=== PATIENT | female | born 1995 | race Caucasian/White ===

== ENCOUNTER → 2016-11-26 | Outpatient (CLI) | payer BC ==
[2016-11-30 01:40] LABS: CHLAMYDIA TRACH RNA*** NOT DETECTED (NOT DETECTED); GC (NEIS GONORRHOEAE)RNA** NOT DETECTED (NOT DETECTED)
== END | disposition home or self-care (01) ==
LOC: C.LABSPEC 14:19
PROVIDERS: ATTEND Obstetrics & Gynecology
DX: Z11.3 Encounter for screening for infections with a predominantly sexual mode of transmission (principal)

== ENCOUNTER → 2016-12-07 | Outpatient (CLI) | payer BC ==
[2016-12-07 10:11] LABS: BASO % 0.6 %; BASO ABS # 0.04 K/uL (0-0.2); COMPLETE YES; EOS % 1.1 %; IG% 0.2 %; LYMPH % 25.3 %; LYMPH ABS # 1.61 K/uL (1.2-3.4); MEAN CELL VOLUME 89.1 fL (80-100); MEAN CORPUSCULAR HEMOGLOBIN 31.2 pg (25-34); MEAN PLATELET VOLUME 11.2 fL (7.4-10.4); MONO % 5.7 %; NEUT % 67.1 %; PLATELET COUNT 211 K/uL (130-400); RED BLOOD COUNT 4.04 M/uL (4.2-5.4); WHITE BLOOD COUNT 6.36 K/uL (4.8-10.8)
[2016-12-07 10:56] LABS: BLOOD UREA NITROGEN 9 mg/dl (7-18); CREATININE 0.94 mg/dl (0.60-1.20); GLUCOSE 82 mg/dl (70-99)
[2016-12-07 10:57] LABS: ALKALINE PHOSPHATASE 64 U/L (45-117); ALT/SGPT 35 U/L (12-78); AST/SGOT 20 U/L (15-37); BUN/CREATININE RATIO 9.3 (10-20); CALCIUM 9.5 mg/dl (8.5-10.1); CARBON DIOXIDE 23 mmol/L (21-32); CHLORIDE 105 mmol/L (98-107); CHOLESTEROL 150 mg/dl (0-200); CHOLESTEROL/HDL RATIO 2.3; FERRITIN 28.5 ng/ml (8.0-388.0); HDL CHOLESTEROL 64 mg/dl; LDL CHOLESTEROL CALCULATED 76 mg/dl; SODIUM 139 mmol/L (136-145); TRIGLYCERIDES 49 mg/dl (0-150); VERY LOW DENSITY LIPOPROT CALC 10 mg/dl
[2016-12-07 11:02] LABS: ALB/GLOB RATIO 1.3 (0.9-2); TOTAL IRON BINDING CAPACITY 354 mcg/dl (250-450)
== END | disposition home or self-care (01) ==
LOC: C.LAB1850 09:14
PROVIDERS: ATTEND Pediatrics
DX: Z00.00 Encounter for general adult medical examination without abnormal findings (principal); R68.89 Other general symptoms and signs